=== PATIENT | female | born 1985 | race Hispanic/Latino ===

== ENCOUNTER 2022-06-12 00:19 | Day surgery (SDC) | payer BC, SELFPAY ==
[2022-05-28 10:08] VITALS: BMI 37.0
--- NOTE | 2022-05-28 10:29 | PC.NURSE ---
Report to the Outpatient Waiting Room, entrance under the green pavilion located off [facility], at time __1100 on date _06/12/22 . OR Time: __1:00 PM . Time changes happen often and if your time is changed the preop area will call you the afternoon before. - You and your visitor will be asked to self-screen and do not enter if you have any COVID symptoms. - We encourage only one visitor and NO visitors under age 16 are allowed at this time. Your visitor will receive communication by the phone number that is given day of service. - The patient visitor is requested to social distance or may leave the building when not with patient due to restrictions. - A mask is required within the hospital. Patients may have clear liquids (water, carbonated beverages, clear teas, apple juice) until 3 hours prior to surgery with a maximum of 20 ounces. - No food from midnight until time of surgery - Infants may have breast milk until 4 hours before surgery, infant formula 6 hours prior to surgery. - Children will be allowed to drink immediately following surgery. If applicable, please bring a bottle or sippy cup to assist with drinking. Juice, water, soda, and popsicles are readily available. For infants on formula, please bring formula the day of surgery. Pacifiers are allowed. Take the following medications with a SIP of water the morning of surgery: ___NONE Medications to discontinue per physician ____NONE Date to take last dose Please no make-up, nail italian, hairspray, perfume, deodorant, or body powder the day of surgery. No jewelry (including any body piercings) or valuables the day of surgery, leave them at home. Please take a shower or bath the night before, or the morning of, surgery with an antibacterial soap. Wear comfortable, loose fitting clothing. Children are encouraged to wear pajamas. - Jewelry must be removed prior to entering the operating room. Rings and piercings that are not removed may be cut off. - The hospital will not accept responsibility for valuables. - Please leave all valuables, including medications, at home the day of surgery. If you are going home after surgery, a licensed courier delivery driver must drive you home. - NO public transportation without another adult. - We recommend that an adult stay with you for 24 hours following discharge. - We also recommend that you do not drive, make important decision, drink alcoholic beverages, or take any drugs that were not prescribed by your health care provider for at least 24 hours after your discharge time. For Pediatric surgeries, we recommend two adults accompany the child home. Follow any additional instructions given to you from your surgeon. If you or anyone in your household have experienced Covid symptoms in the past week, please notify your surgeon or the nurse liaison at the phone number below for possible testing. VERBAL AND WRITTEN instructions given to _PATIENT and asked if any additional questions and then verbalized understanding. Patient advised to call surgeon office or pre surgery nurse liaison [phone] if any additional questions.
[2022-05-28 10:53] VITALS: BP 125/80; PULSE 57; RESP 18; TEMP 36.9; O2SAT 99
[2022-06-12] VITALS (9 sets, daily range): BP systolic 103–117; BP diastolic 50–76; PULSE 52–78; RESP 14–20; TEMP 36.2–36.8; O2SAT 96–100; BMI 36.2
--- NOTE | 2022-06-12 08:24 | P.PNAN_ITS ---
Anes - Initial Pre Proc Eval Procedure: Operation Date: 06/12/22 12:30 Proposed Procedures p Diagnostic Laparoscopy, Bilateral Laparoscopic Salpingectomy - Pavithra Salinas DO Date/Time: 06/12/22 08:24 Surgeon: Pavithra Salinas DO Pre Op Diagnosis: deisres sterilization Patient Data Age: 37 Gender: F Height: 1.55 m Weight: 88.9 kg Last Vital Signs Temp 36.9 C 05/28/22 10:53 Pulse 57 L 05/28/22 10:53 Resp 18 05/28/22 10:53 BP 125/80 05/28/22 10:53 Pulse Ox 99 05/28/22 10:53 O2 Del Method Room Air 05/28/22 10:53 Allergies Allergy/AdvReac Type Severity Reaction Status Date / Time No Known Allergies Allergy Verified 06/12/22 10:59 Home Medications Medication Instructions Recorded Confirmed Type No Home Medications 05/28/22 05/28/22 History Patient hx anesthesia problems: none Family hx anesthesia problems: none Results Review: All pre-operative results and documents have been reviewed as part of the pre- operative evaluation. [facility] Past Medical History Medical History (Updated 06/12/22 @ 08:24 by Jai Bryson MD) Obesity Social History Social History Smoking status: Never smoker Living arrangements: with family Spiritual care concerns: No Anes - Eval Final PreProcedure Day of Procedure 06/12/22 08:24 Patient weight: obese Heart: regular rate and rhythm Lungs: clear to auscultation and normal air movement Airway: Mallampati scale class II Neurological: alert and oriented Last oral intake: >/= 8 hours ASA classification: II Emergent: no Anesthetic plan: proceed Anesthesia type and monitoring: general ETT Results Review: All pre-operative results and documents have been reviewed as part of the pre- operative evaluation. Informed Consent: The patient's anesthetic plan and its attendant risks and benefits were discussed with the patient/family/POA. Questions were solicited and answers provided to the satisfaction of the patient/family/POA.
--- NOTE | 2022-06-12 10:55 | SUR.PREOP ---
[id number] poured pipe maker service [employer]ando #[id number] used to greet patient and explain pre-op instructions. All questions and concerns answered with poured pipe maker.
[2022-06-12] MEDS: GABAPENTIN 300 MG CAPSULE PO (11:24)
[2022-06-12] MEDS: ACETAMINOPHEN 500 MG TABLET 1000 MG PO (11:24)
[2022-06-12] MEDS: LACTATED RINGERS 1,000 ML 30 ML IV CONT ×2 (11:33→13:10)
--- NOTE | 2022-06-12 11:56 | PM.IMHP ---
H&P: HPI History of Present Illness Date/Time: 06/12/22 11:56 Chief Complaint: I'm having surgery Narrative: Merly presents with undesired fertility requesting permanent sterilization Review of Systems Review of Systems: All systems reviewed & are unremarkable except as noted in HPI and below PMFSH Past Medical History Medical History Obesity Social History Social History Smoking status: Never smoker Living arrangements: with family Spiritual care concerns: No Meds Home Medications and Allergies Home Medications Medication Instructions Recorded Confirmed Type No Home Medications 05/28/22 05/28/22 History Allergies Allergy/AdvReac Type Severity Reaction Status Date / Time No Known Allergies Allergy Verified 06/12/22 10:59 Vital Signs Vital Signs - 24 hr 06/12/22 10:50 Temperature 36.8 C Pulse Rate 62 Respiratory Rate 14 Blood Pressure 117/63 Pulse Oximetry 100 Oxygen Delivery Room Air Exam Const: General: comfortable and no acute distress Resp: Effort & Inspection: normal respiratory effort Auscultation: clear to auscultation bilaterally Other: no crackles Cardio: Rate: regular rate Rhythm: regular rhythm Other: no murmurs Skin: General skin exam: normal color and no rashes or lesions noted Other: no edema Psych: Mental Status: mental status grossly normal Affect: normal affect Other: pleasant Assessment and Plan Assessment and plan (1) Sterilization: Code(s): Z30.2 - Encounter for sterilization Status: Acute Plan Diagnostic laparoscopy, bilateral salpingectomy
--- NOTE | 2022-06-12 11:58 | WPDHPUPDATE1 ---
History and Physical Update Update Date/Time: 06/12/22 11:58 History and Physical has been reviewed, including an updated exam of the patient. There are NO changes in the patient's condition. Risks, benefits, and alternatives have been discussed and questions answered. Patient agrees to proceed with procedure.
[2022-06-12] MEDS: BUPIVACAINE/EPINEPHRINE 0.25% 50 ML VIAL 10 ML INFILTRATE (12:35)
--- NOTE | 2022-06-12 13:05 | W.PM.PROC2 ---
Procedure Note - Detailed Date of Procedure 06/12/22 Pre-op Diagnosis deisres sterilization Post-op Diagnosis Same Procedure Performed Diagnostic laparoscopy, bilateral salpingectomy Surgeon Pavithra Salinas DO Software Engineer [employer] Anesthesia General Indications Undesired fertility Findings Appearing vulva and vaginal canal. Very small cervix. Internally, the bowels, liver and gallbladder appeared normal. There was an omental curtain of adhesions in the pelvis above the uterine fundus. The anterior wall of the uterus was completely plastered to the anterior abdominal wall. The tubes and ovaries were unremarkable, the posterior cul-de-sac was free. Description of Procedure The patient was taken to the operating room where she was placed under general anesthesia. She was prepped and draped in the normal sterile fashion in a dorsal lithotomy position. No preoperative antibiotics were indicated. After a time-out was performed, a speculum was placed in the vagina and the cervix was visualized. The cervix was extremely small. The anterior lip was grasped with a single-tooth tenaculum and a Kroner uterine manipulator was introduced after sounding to 7 cm. Speculum and tenaculum were removed, gloves were changed and attention was then turned to the abdomen. The skin above the umbilicus was grasped with 2 penetrating towel clamps and the area was injected with local anesthetic. Small incision was made and a Veress needle was introduced. The saline water drop test was performed to confirm intraperitoneal placement. The abdomen was insufflated to 15 mmHg pressure. The Veress needle was then replaced with a 5 mm Optiview trocar which was inserted under direct visualization. Survey of the abdomen revealed no evidence of bowel or vascular injury upon entry. The patient was placed in steep Trendelenburg position. Additional port sites in the right and left lower quadrants were identified, injected and incised. 5 mm trocars were inserted under direct visualization. The omental adhesions did not contain any loops of small bowel and were taken down easily and carefully with the LigaSure. Once these were freed the adnexa were easily seen. The uterus was plastered to the anterior abdominal wall with thick adhesions. The right tube was elevated and was cauterized and transected off using LigaSure. The specimen was handed off through the warehouse administrative assistant port. The procedure was repeated in an identical fashion on the left-hand side and the specimen was handed off. Pedicles were reinspected and found to be hemostatic. The instruments and trocars were removed and the CO2 gas was allowed to escape. Patient was taken out of Trendelenburg position and her incisions were closed with 4-0 Monocryl in a subcuticular fashion and covered with Steri-Strips. Uterine manipulator was removed. The patient was taken to the recovery room in stable condition. All instrument sponge counts were correct at the conclusion of the procedure. Estimated Blood Loss 5 IV Fluids 1,000 Drains No Packing No Pathology Yes Complications No immediate complications Condition Stable Disposition PACU
[2022-06-12] MEDS: fentaNYL CITRATE INJ (*CRX) 100 MCG/2 ML VIAL 25 MCG IV PUSH ×3 (13:32→14:04)
[2022-06-12] MEDS: oxyCODONE HCL (*CRX) 5 MG TAB IR PO (14:27)
== END 2022-06-12 15:20 | disposition home or self-care (01) ==
PROVIDERS: Visit Provider Obstetrics & Gynecology Gynecologic Oncology
PROC: (CPT 49320; principal; 2022-06-12 12:30)
DX: Z30.2 Encounter for sterilization (principal); N73.6 Female pelvic peritoneal adhesions (postinfective); E66.9 Obesity, unspecified; Z68.36 Body mass index [BMI] 36.0-36.9, adult
CPT/HCPCS: 58661; 88302; A9270; J1100; J2250; J2405; J2704; J2710; J3010; J7030; J7120